=== PATIENT | female | born 1970 ===

== ENCOUNTER 2017-04-12 11:31 | Emergency (ER) | payer OTHER ==
[2017-04-12 11:43] VITALS: O2SAT 98
[2017-04-12 11:44] VITALS: BMI 25.4
[2017-04-12] MEDS ORDERED: Albuterol-Ipratrop 3 mg / 0.5 (3 ml) UD IH STA (12:03)
--- NOTE | 2017-04-12 12:08 | ED PDOC ---
HPI: CCC, URI, Sore Throat Time Seen by Provider: 04/12/17 11:59 Chief Complaint (Nursing): Cough, Cold, Congestion Chief Complaint (Provider): Cough History Per: Patient History/Exam Limitations: no limitations Onset/Duration Of Symptoms: Days (x1 week) Current Symptoms Are (Timing): Still Present Associated Symptoms: Cough (productive), Sputum (yellow), Other (back pain). denies: Fever Ear Symptoms: Bilateral: None Additional Complaint(s): Mirtha Bolden is a 46 year old female, with a past medical history of tuberculosis , who presents to the emergency department complaining of a productive cough with yellow sputum associated with back pain onset x1 week. Patient denies any shortness of breath or fever. She reports having tuberculosis in 1985 treated x1 year. No further medical complaints. PMD: None provided. Past Medical History Reviewed: Historical Data, Nursing Documentation, Vital Signs Vital Signs: Last Vital Signs Temp 98.1 F 04/12/17 11:42 Pulse 110 H 04/12/17 11:42 Resp 20 04/12/17 11:42 BP 118/79 04/12/17 11:42 Pulse Ox 98 04/12/17 12:11 - Medical History PMH: Pneumonia - Surgical History Surgical History: Appendectomy, (and tubal ligation) - Family History Family History: States: Unknown Family Hx - Social History Current smoker - smoking cessation education provided: No Alcohol: None Drugs: Denies - Home Medications Home Medications: Ambulatory Orders Medication Instructions Recorded Famotidine [Pepcid] 20 mg PO BID #60 tab 03/30/14 Ondansetron [Zofran] 4 mg PO Q8H #9 tab 03/30/14 Famotidine [Pepcid] 20 mg PO BID PRN #10 tab 11/25/14 Azithromycin [Zithromax Z-Jose] 250 mg PO DAILY #5 tab 05/13/15 Ibuprofen [Motrin] 600 mg PO Q8 #30 tab 05/13/15 Cyclobenzaprine [Cyclobenzaprine 10 mg PO Q8 PRN #9 tab 04/26/16 HCl] Naproxen [Naprosyn] 500 mg PO BID PRN #14 tablet 04/26/16 traMADol [Ultram] 50 mg PO TID PRN #10 tab 04/26/16 Albuterol HFA [Ventolin HFA 90 2 puff IH Q4H #1 puff 04/12/17 mcg/actuation (8 g)] Azithromycin [Zithromax] 250 mg PO DAILY #6 tab 04/12/17 - Allergies Allergies/Adverse Reactions: Allergies Allergy/AdvReac Type Severity Reaction Status Date / Time No Known Allergies Allergy Unverified 04/26/16 11:06 Review of Systems Constitutional: Negative for: Fever Respiratory: Positive for: Cough (productive), Sputum (yellow). Negative for: Shortness of Breath Musculoskeletal: Positive for: Back Pain Physical Exam - Reviewed Nursing Documentation Reviewed: Yes Vital Signs Reviewed: Yes - Physical Exam Appears: Positive for: Non-toxic Head Exam: Positive for: ATRAUMATIC, NORMAL INSPECTION, NORMOCEPHALIC Skin: Positive for: Normal Color, Warm, Dry Eye Exam: Positive for: EOMI, Normal appearance, PERRL Neck: Positive for: Normal, Painless ROM, Supple Cardiovascular/Chest: Positive for: Regular Rate, Rhythm. Negative for: Murmur Respiratory: Positive for: Rhonchi (scattered). Negative for: Wheezing, Respiratory Distress Gastrointestinal/Abdominal: Positive for: Normal Exam, Bowel Sounds, Soft. Negative for: Tenderness, Guarding, Rebound Back: Positive for: Normal Inspection. Negative for: L CVA Tenderness, R CVA Tenderness Extremity: Positive for: Normal ROM (Full ROM). Negative for: Deformity, Swelling Neurologic/Psych: Positive for: Alert, Oriented - ECG O2 Sat by Pulse Oximetry: 98 (RA) Pulse Ox Interpretation: Normal Medical Decision Making Medical Decision Making: Initial Plan: --Chest two views (PA/LAT) [RAD] --Duoneb 3 ml INH --Peak flow pre/post Tx --reevaluation Scribe Attestation: Documented by Chuck Limon, acting as a scribe for Fantasma Ridley MD Provider Scribe Attestation: All medical record entries made by the Scribe were at my direction and personally dictated by me. I have reviewed the chart and agree that the record accurately reflects my personal performance of the history, physical exam, medical decision making, and the department course for this patient. I have also personally directed, reviewed, and agree with the discharge instructions and disposition. Disposition - Clinical Impression Clinical Impression: Bronchitis - Patient ED Disposition Is Patient to be Admitted: No Counseled Patient/Family Regarding: Studies Performed, Diagnosis, Need For Followup, Rx Given - Disposition [facility]errals: [facility] [Outside] Disposition: Routine/Home Disposition Time: 13:11 Condition: FAIR Prescriptions: Albuterol HFA [Ventolin HFA 90 mcg/actuation (8 g)] 2 puff IH Q4H #1 puff Azithromycin [Zithromax] 250 mg PO DAILY #6 tab Instructions: Acute Bronchitis (ED) Forms: [facility] (Cambodian) Print Language: KAZAKH
[2017-04-12] MEDS ORDERED: Albuterol-Ipratrop 3 mg / 0.5 (3 ml) UD ONE (12:19)
--- NOTE | 2017-04-12 13:47 | RAD ---
HISTORY: COMPARISON: 07/07/2016 TECHNIQUE: Chest PA and lateral FINDINGS: LINES AND TUBES: None. 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 Running sutures are identified in the upper lobe. There is chronic left pleural thickening. There are also fibrotic changes and apical thickening in the right upper lobe. There is no large right pleural effusion. HEART AND MEDIASTINUM: The heart is not enlarged. The hilar and mediastinal contours are within normal limits. SKELETAL STRUCTURES: The bony structures are within normal limits for the patient's age. VISUALIZED UPPER ABDOMEN: Normal. OTHER FINDINGS: None. IMPRESSION: Stable postoperative changes in the left lung with low lung volume and shift of mediastinal to the left. Stable fibrotic changes in the right upper lobe. No acute findings.
[2017-04-12 14:03] VITALS: BP 120/78; PULSE 78; RESP 18; TEMP 97
== END 2017-04-12 13:59 | disposition home or self-care (01) ==
LOC: H.ER 11:31
DX: J40 Bronchitis, not specified as acute or chronic (principal)

== ENCOUNTER 2017-06-03 02:31 | Emergency (ER) | payer SELFPAY ==
[2017-06-03 02:32] VITALS: BMI 25.4
[2017-06-03] MEDS ORDERED: Albuterol-Ipratrop 3 mg / 0.5 (3 ml) UD INH STA (03:12)
[2017-06-03] MEDS ORDERED: Sodium Chloride 0.9% 1,000 ML IV STA (03:12)
[2017-06-03] MEDS ORDERED: Albuterol-Ipratrop 3 mg / 0.5 (3 ml) UD ONE (03:26)
--- NOTE | 2017-06-03 03:27 | ED PDOC ---
HPI: General Adult Time Seen by Provider: 06/03/17 02:45 Chief Complaint (Nursing): Flu-like Symptoms Chief Complaint (Provider): Flu-like symptoms History Per: Patient History/Exam Limitations: no limitations Onset/Duration Of Symptoms: Days (2 days agp) Current Symptoms Are (Timing): Still Present Additional Complaint(s): 46 y/o female with a history Tuberculosis, treated over 20 years ago, presents to the ED complaining of cough, shortness of breath, fever, and body aches, onset of 2 days. Patient reports of symptoms getting worse within the last few hours, and reports having chills and a cough productive of white phlegm. She denies any vomiting or diarrhea. Of note, patient took over the counter [employer] medicine w/o relief. Past Medical History Reviewed: Historical Data, Nursing Documentation, Vital Signs Vital Signs: Last Vital Signs Temp 99.0 F 06/03/17 02:36 Pulse 114 H 06/03/17 02:36 Resp 98 H 06/03/17 02:36 BP 121/70 06/03/17 02:36 Pulse Ox 98 06/03/17 03:38 - Medical History PMH: Pneumonia Other PMH: Tuberculosis - Surgical History Surgical History: Appendectomy, (and tubal ligation) - Family History Family History: States: Unknown Family Hx - Social History Current smoker - smoking cessation education provided: No Ex-Smoker (has not smoked in the last 12 months): No Alcohol: None Drugs: Denies - Home Medications Home Medications: Ambulatory Orders Medication Instructions Recorded Famotidine [Pepcid] 20 mg PO BID #60 tab 03/30/14 Ondansetron [Zofran] 4 mg PO Q8H #9 tab 03/30/14 Famotidine [Pepcid] 20 mg PO BID PRN #10 tab 11/25/14 Azithromycin [Zithromax Z-Jose] 250 mg PO DAILY #5 tab 05/13/15 Ibuprofen [Motrin] 600 mg PO Q8 #30 tab 05/13/15 Cyclobenzaprine [Cyclobenzaprine 10 mg PO Q8 PRN #9 tab 04/26/16 HCl] Naproxen [Naprosyn] 500 mg PO BID PRN #14 tablet 04/26/16 traMADol [Ultram] 50 mg PO TID PRN #10 tab 04/26/16 Albuterol HFA [Ventolin HFA 90 2 puff IH Q4H #1 puff 04/12/17 mcg/actuation (8 g)] Azithromycin [Zithromax] 250 mg PO DAILY #6 tab 04/12/17 Oseltamivir [Tamiflu] 75 mg PO BID #10 cap 06/03/17 - Allergies Allergies/Adverse Reactions: Allergies Allergy/AdvReac Type Severity Reaction Status Date / Time No Known Allergies Allergy Unverified 04/26/16 11:06 Review of Systems Constitutional: Positive for: Fever, Chills, Other (body aches) Respiratory: Positive for: Cough (productive), Shortness of Breath Gastrointestinal: Negative for: Vomiting, Diarrhea Physical Exam - Reviewed Nursing Documentation Reviewed: Yes Vital Signs Reviewed: Yes - Physical Exam Appears: Positive for: Non-toxic, No Acute Distress Head Exam: Positive for: ATRAUMATIC, NORMOCEPHALIC Skin: Positive for: Normal Color, Warm, DRY Eye Exam: Positive for: EOMI, Normal appearance, PERRL ENT: Positive for: Normal ENT Inspection Neck: Positive for: Normal, Painless ROM Cardiovascular/Chest: Positive for: Tachycardia Respiratory: Positive for: Rales (left-sided, half way up from the base), Wheezing (bilaterally) Gastrointestinal/Abdominal: Positive for: Normal Exam, Soft. Negative for: Tenderness Back: Positive for: Normal Inspection Extremity: Positive for: Normal ROM. Negative for: Pedal Edema, Deformity Neurologic/Psych: Positive for: Alert, Oriented. Negative for: Motor/Sensory Deficits - Laboratory Results Result Diagrams: 06/03/17 03:45 06/03/17 03:45 - ECG O2 Sat by Pulse Oximetry: 98 (RA) Pulse Ox Interpretation: Normal Medical Decision Making Medical Decision Making: Time: --03:11 Impression: --46 y/o female with flu-like symptoms Plan: --Labs --Urine --Chest X-ray --Albuterol 3ml INH --IV Fluids --Blood Culture --Heplock Insertion --Peak Flow Pre/Post Tx --Influenza A B --Urinalysis Reassess --04:24 Labs reviewed and revealed no clinically significant abnormalities. chest x-ray shows status post left lobectomy and no changes from prior study. Patient to be discharge home and treated for flu due to strong clinical suspicion based on her symptoms. Scribe Attestation: Documented by Giovanni Rose acting as a scribe for Ochoa Haney MD. Disposition - Clinical Impression Clinical Impression: Influenza - Patient ED Disposition Is Patient to be Admitted: No - Disposition Disposition: Routine/Home Disposition Time: 04:24 Condition: STABLE Prescriptions: Oseltamivir [Tamiflu] 75 mg PO BID #10 cap Instructions: Influenza (ED) Forms: [facility] (Syrian) Print Language: SRI LANKAN
[2017-06-03 03:57] LABS: BASO % 0.2 % (0.0-2.0); EOS % 0.1 % (0.0-4.0); HEMOGLOBIN 10.2 g/dL (12.0-16.0); LYMPH # 0.4 K/uL (1.0-4.3); LYMPH % 7.1 % (20.0-40.0); MEAN CELL VOLUME 79.5 fl (81.0-99.0); MEAN CORPUSCULAR HEMOGLOBIN 25.3 pg (27.0-31.0); MEAN CORPUSCULAR HGB CONC 31.9 g/dL (33.0-37.0); MEAN PLATELET VOLUME 11.1 fl (7.2-11.7); MONO # 0.4 K/uL (0.0-0.8); MONO % 5.8 % (0.0-10.0); NEUT # 5.4 K/uL (1.8-7.0); NEUT % 86.8 % (50.0-75.0); NRBC % 0.1 % (0.0-0.0); PLATELET COUNT 156 K/uL (130-400); RBC 4.04 Mil/uL (3.80-5.20); RED CELL DISTRIBUTION WIDTH 15.6 % (11.5-14.5); WHITE BLOOD COUNT 6.2 K/uL (4.8-10.8)
[2017-06-03 04:12] LABS: ALB/GLOB RATIO 1.1 (1.0-2.1); CALCIUM 8.2 mg/dL (8.4-10.2); GFR AFRICAN-AMERICAN > 60; GFR NON-AFRICAN AMERICAN > 60
[2017-06-03 04:47] LABS: ALT/SGPT 37 U/L (9-52); AST/SGOT 53 U/L (14-36); BLOOD UREA NITROGEN 8 mg/dl (7-17)
[2017-06-03 04:52] LABS: SQUAMOUS EPITHIAL < 1 /hpf (0-5); URINE BACTERIA RARE (<OCC); URINE BILIRUBIN NEGATIVE (NEGATIVE); URINE BLOOD MODERATE (NEGATIVE); URINE CLARITY CLEAR (Clear); URINE COLOR STRAW (YELLOW); URINE GLUCOSE (UA) NEG (Normal); URINE LEUKOCYTE ESTERASE NEG Leu/uL (Negative); URINE NITRATE NEGATIVE (NEGATIVE); URINE PROTEIN NEGATIVE (NEGATIVE); URINE UROBILINOGEN 0.2-1.0 mg/dL (0.2-1.0)
[2017-06-03 04:59] LABS: BANDS 1 % (0-2); LYMPHOCYTE 10 % (20-50); MONOCYTE 4 % (0-10); NEUTROPHIL 85 % (42-75); PLATELET ESTIMATE NORMAL (NORMAL); TOTAL CELLS COUNTED 100
[2017-06-03 05:01] LABS: ANISOCYTOSIS SLIGHT; POIKILOCYTOSIS SLIGHT
[2017-06-03 05:02] LABS: HYPOCHROMIC SLIGHT
[2017-06-03 05:03] LABS: TARGET CELLS SLIGHT; TEARDROP CELLS SLIGHT
[2017-06-03 06:28] VITALS: BP 99/56; PULSE 90; RESP 18; TEMP 98.5; O2SAT 97
--- NOTE | 2017-06-03 10:01 | RAD ---
HISTORY: cough/SOB COMPARISON: Chest radiographs 04/12/2017. TECHNIQUE: Chest PA and lateral FINDINGS: LUNGS: Chronic fibrotic changes are again seen at the right apex with postop changes suggesting prior left upper lobectomy or partial left upper lobectomy. Air bronchograms again seen at the mid to inferior left lung zone with extensive opacification left hemithorax is unchanged with overall volume loss again evident as well. Mid to inferior right lung zone remains clear as hyper expanded due to extensive fibrosis of the right apex. No pneumothorax or right pleural effusion. CARDIOVASCULAR: Normal. OSSEOUS STRUCTURES: No significant abnormalities. VISUALIZED UPPER ABDOMEN: Normal. OTHER FINDINGS: None. IMPRESSION: Stable gross volume loss left lung status post left lobectomy and probable fibrosis of the left lower lobe. Stable chronic fibrosis right apex. No acute infiltrate appreciated the aerated right lung or right pleural effusion.
== END 2017-06-03 06:30 | disposition home or self-care (01) ==
LOC: H.ER 02:31
DX: J11.1 Influenza due to unidentified influenza virus with other respiratory manifestations (principal); Z86.11 Personal history of tuberculosis
CPT/HCPCS: 71046; 80053; 81003; 81025; 83605; 85025; 87040; 87804; 96361; 96374; 96375; 99283; J1885; J2405; J7040